=== PATIENT | female | born 1955 | race Asian ===

== ENCOUNTER 2017-11-26 02:21 | Emergency (ER) | payer OTHER ==
[~2017-11-26] VITALS: Ht 157.5 cm; Wt 90.7 kg
[2017-11-26 02:35] VITALS: TEMP 98.9
[2017-11-26 04:01] LABS: PLATELET COUNT 411 K/uL (152-353)
[2017-11-26 04:05] LABS: POTASSIUM 3.4 mmol/L (3.6-5.2)
[2017-11-26 04:22] VITALS: BP 171/89
== END 2017-11-26 04:25 | disposition home or self-care (01) ==
LOC: ED 02:21
DX: S40.011A Contusion of right shoulder, initial encounter (principal); S80.01XA Contusion of right knee, initial encounter; M54.2 Cervicalgia
CPT/HCPCS: 36415; 80053; 85027; 99283

== ENCOUNTER 2019-10-08 08:04 | Emergency (ER) | payer BC ==
[~2019-10-08] VITALS: Ht 157.5 cm; Wt 83.9 kg
[2019-10-08 08:18] VITALS: TEMP 99.4
[2019-10-08 09:40] VITALS: BP 173/76
== END 2019-10-08 09:40 | disposition home or self-care (01) ==
LOC: ED 08:04
DX: J02.0 Streptococcal pharyngitis (principal); F17.210 Nicotine dependence, cigarettes, uncomplicated
CPT/HCPCS: 87651; 96372; 99283; J0561; J1100; J2270; J2405

== ENCOUNTER 2020-03-17 04:26 | Emergency (ER) | payer BC ==
[~2020-03-17] VITALS: Ht 157.5 cm; Wt 86.2 kg
[2020-03-17 05:42] LABS: PLATELET COUNT 387 K/uL (152-353); POTASSIUM 3.8 mmol/L (3.6-5.2)
[2020-03-17 08:27] VITALS: BP 152/62; TEMP 98.5
== END 2020-03-17 08:28 | disposition short-term general hospital (02) ==
LOC: ED 04:26
PROVIDERS: Family Medicine
DX: K35.890 Other acute appendicitis without perforation or gangrene (principal)
CPT/HCPCS: 36415; 80053; 81000; 82150; 83690; 85027; 87077; 87086; 87088; 87186; 96360; 96365; 96368; 96374; 96375; 99284; J2175; J2405; J2543